=== PATIENT | female | born 1960 | race Caucasian/White ===

== ENCOUNTER 2020-04-18 09:11 | Outpatient (CLI) | payer BC, SELFPAY ==
--- NOTE | ~2020-04-18 | MM_ITS ---
EXAMINATION: MM screening [facility] w jamey HISTORY: Screening mammogram TECHNIQUE: Craniocaudal and mediolateral oblique 3-D tomosynthesis images were obtained and synthetic 2-D images were generated. CAD analysis was submitted and interpreted. COMPARISON: 04/13/2019, 01/18/2018 bilateral digital screening mammogram examinations BREAST PARENCHYMAL COMPOSITION: There are scattered areas of fibroglandular density. FINDINGS: There is no evidence of suspicious mass, calcification, or architectural distortion to sugg est malignancy in either breast. There has been no suspicious interval change. IMPRESSION: 1. No mammographic evidence of malignancy. 2. Recommend routine screening mammography in one year. BI-RADS Category 1: Negative Reviewed, dictated and finalized at location A.
== END 2020-04-18 09:12 | disposition home or self-care (01) ==
LOC: CHSIMG 09:12
PROVIDERS: PCP Internal Medicine; Visit Provider Internal Medicine
DX: Z12.31 Encounter for screening mammogram for malignant neoplasm of breast (principal)
CPT/HCPCS: 77063; 77067

== ENCOUNTER 2021-05-12 12:24 | Outpatient (CLI) | payer BC, SELFPAY | END 2021-05-12 12:25 | disposition home or self-care (01) | LOC: CHSIMG 12:27 | PROVIDERS: PCP Internal Medicine; Visit Provider Internal Medicine | DX: Z53.8 Procedure and treatment not carried out for other reasons (principal) | CPT/HCPCS: 99199 ==

== ENCOUNTER 2021-06-05 11:30 | Outpatient (CLI) | payer BC, SELFPAY ==
--- NOTE | ~2021-06-05 | MM_ITS ---
EXAMINATION: MM screening [facility] w jamey HISTORY: Screening mammogram TECHNIQUE: Craniocaudal and mediolateral oblique 3-D tomosynthesis images were obtained and synthetic 2-D images were generated. CAD analysis was submitted and interpreted. COMPARISON: 04/14/2020, 920 , 01/18/2018 bilateral screening mammogram examinations BREAST PARENCHYMAL COMPOSITION: The breasts are almost entirely fatty. FINDINGS: There is no evidence of suspicious mass, calcification, or architectural distortion to sugg est malignancy in either breast. There has been no suspicious interval change. IMPRESSION: 1. No mammographic evidence of malignancy. 2. Recommend routine screening mammography in one year. BI-RADS Category 1: Negative Reviewed, dictated and finalized at location A. 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
== END 2021-06-05 11:31 | disposition home or self-care (01) ==
LOC: CHSIMG 11:32
PROVIDERS: PCP Internal Medicine; Visit Provider Internal Medicine
DX: Z12.31 Encounter for screening mammogram for malignant neoplasm of breast (principal)
CPT/HCPCS: 77063; 77067

== ENCOUNTER 2022-06-08 12:43 | Outpatient (CLI) | payer BC, SELFPAY ==
--- NOTE | ~2022-06-08 | MM_ITS ---
EXAMINATION: MM screening [facility] w jamey HISTORY: Screening TECHNIQUE: Craniocaudal and mediolateral oblique 3-D tomosynthesis images were obtained and synthetic 2-D images were generated. CAD analysis was submitted and interpreted. COMPARISON: Comparison to multiple prior studies sequentially, with oldest reviewed study dated 06/25. BREAST PARENCHYMAL COMPOSITION: The breasts are almost entirely fatty. FINDINGS: There is no evidence of suspicious mass, calcification, or architectural distortion to sugg est malignancy in either breast. There has been no suspicious interval change. IMPRESSION: 1. No mammographic evidence of malignancy. 2. Recommend routine screening mammography in one year. BI-RADS Category 1: Negative Reviewed, dictated and finalized at location A. 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
== END 2022-06-08 12:44 | disposition home or self-care (01) ==
LOC: CHSIMG 12:44
PROVIDERS: PCP Internal Medicine; Visit Provider Internal Medicine
DX: Z12.31 Encounter for screening mammogram for malignant neoplasm of breast (principal)
CPT/HCPCS: 77063; 77067

== ENCOUNTER 2022-06-25 12:07 | Outpatient (CLI) | payer BC, SELFPAY ==
--- NOTE | ~2022-06-25 | DEXA_ITS ---
Bone Density Report Name: MAN ESPINAL Age: 62 Sex: Female Ethnicity: White Date of : 1960 Indication: postmenopausal; screening for osteoporosis; parental hip fracture; height loss; hysterectomy; Referring Provider: Isaac Moreira Study: Bone densitometry was performed. Exam Date: June 25, 2022 Accession number: [id number] Bone Density: Region BMD T-score Z-score Classification AP Spine(L1, L2, L3) 0.860 -1.4 0.0 Osteopenia Femoral Neck (Left) 0.680 -1.5 -0.2 Osteopenia Total Hip (Left) 0.790 -1.2 -0.3 Osteopenia Femoral Neck (Right) 0.686 -1.5 -0.2 Osteopenia Total Hip (Right) 0.797 -1.2 -0.2 Osteopenia Femoral Neck Mean 0.683 -1.5 -0.2 Osteopenia Total Hip Mean 0.794 -1.2 -0.3 Osteopenia World Health Organization criteria for BMD impression classify patients as: Normal (T-score at or above -1.0), Osteopenia (T-score between -1.0 and -2.5), or Osteoporosis (T-score at or below -2.5). 10-year Fracture Risk(1): Major Osteoporotic Fracture 15% Hip Fracture 0.7% Reported Risk Factors: [place] (), Neck BMD=0.680, BMI=30.5, parental fracture (1) FRAX(R) Version 3.08. Fracture probability calculated for an untreated patient. Fracture probability may be lower if the patient has received treatment. Clinical Information Provided by Patient: Parent has had a hip fracture Has used the following medications: Vitamin D, Calcium, multivitiman Has the following medical conditions: Hysterectomy Patient maximum height was 63 Menopause Age: 62 No regular weight bearing exercise Does not regularly consume dairy products Drinks caffeinated beverages Onset of menses at age 13 Number of children 4 Impression: The patient has low bone mass, based on the Left Femoral Neck T-score. The patient has risk factors, including: parental hip fracture. Discussion: BONE DENSITY IS LOW AT ONE OR MORE SKELETAL SITES. This patient's lowest T-score is low at one or more skeletal sites. It meets the World Health Organization's (WHO) criteria for ?low bone mass? (T-score between -1.0 and -2.5). The patient's 10-year risk of fracture as calculated by FRAX is less than the threshold where pharmacological therapy is recommended by the National Osteoporosis Foundation (NOF). However, all treatment decisions require clinical judgment and consideration of individual patient factors, including patient preferences, comorbidities, previous drug use, risk factors not captured in the FRAX model (e.g., frailty, falls, vitamin D deficiency, increased bone turnover, interval significant decline in bone density) and possible under or overestimation of fracture risk by FRAX. The patient should follow a healthful lifestyle (good nutrition with adequate calcium and vitamin D, and appropriate debby
== END 2022-06-25 12:08 | disposition home or self-care (01) ==
LOC: CHSIMG 12:08
PROVIDERS: PCP Internal Medicine; Visit Provider Internal Medicine
DX: M81.0 Age-related osteoporosis without current pathological fracture (principal)
CPT/HCPCS: 77080

== ENCOUNTER 2023-06-10 08:07 | Outpatient (CLI) | payer BC, SELFPAY ==
--- NOTE | ~2023-06-10 | MM_ITS ---
EXAMINATION: MM screening [facility] BI w jamey HISTORY: Screening mammogram TECHNIQUE: Craniocaudal and mediolateral oblique 3-D tomosynthesis images were obtained and synthetic 2-D images were generated. CAD analysis was submitted and interpreted. COMPARISON: 06/08/2022, 06/05/2021, 04/18/2020 BREAST PARENCHYMAL COMPOSITION: There are scattered areas of fibroglandular density. FINDINGS: No suspicious mass, calcification, or architectural distortion are identified in either linda ast to suggest malignancy. There has been no suspicious interval change. IMPRESSION: 1. No mammographic evidence of malignancy. 2. Recommend routine screening mammography in one year. BI-RADS Category 1: Negative Reviewed, dictated and finalized at location A. 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
== END 2023-06-10 08:08 | disposition home or self-care (01) ==
PROVIDERS: PCP Internal Medicine; Visit Provider Internal Medicine
DX: Z12.31 Encounter for screening mammogram for malignant neoplasm of breast (principal)
CPT/HCPCS: 77063; 77067

== ENCOUNTER 2024-03-31 16:07 | Outpatient (CLI) | payer BC, SELFPAY ==
[2024-03-31 16:47] LABS: Appearance Urine Clear (Clear); Color Urine Yellow (Yellow); Protein Urine Negative (Negative); Specific Grav Ur 1.005 (1.010-1.020); pH Urine 7.5 (5.0-8.0)
[2024-03-31 16:48] LABS: Add Urine Microscopic? NO; Bilirubin Urine Negative (Negative); Blood Urine Negative (Negative); Glucose Urine UA Negative (Negative); Ketones Urine Negative (Negative); Leukocyte Esterase Ur Negative (Negative); Nitrate Urine Negative (Negative); Urobilinogen Urine Negative mg/dL (0.2-1.0)
== END 2024-03-31 16:08 | disposition home or self-care (01) ==
LOC: CHSLAB 16:11
PROVIDERS: PCP Internal Medicine; Visit Provider Internal Medicine
DX: N39.0 Urinary tract infection, site not specified (principal)
CPT/HCPCS: 81003; 87086

== ENCOUNTER 2024-06-12 10:11 | Outpatient (CLI) | payer BC, SELFPAY ==
--- NOTE | ~2024-06-12 | MM_ITS ---
EXAMINATION: MM screening [facility] BI w jamey HISTORY: Screening mammogram TECHNIQUE: Craniocaudal and mediolateral oblique 3-D tomosynthesis images were obtained and synthetic 2-D images were generated. CAD analysis was submitted and interpreted. COMPARISON: 06/10/2023, 06/08/2022, 06/05/2021, 04/18/2020 BREAST PARENCHYMAL COMPOSITION:Not Dense. The breasts are almost entirely fatty FINDINGS: No suspicious mass, calcification, or architectural distortion are identified in either linda ast to suggest malignancy. There has been no suspicious interval change. IMPRESSION: No mammographic evidence of malignancy. Recommend routine screening mammography in one year. BI-RADS Category 1: Negative Reviewed, dictated and finalized at location . 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
== END 2024-06-12 10:12 | disposition home or self-care (01) ==
LOC: CHSIMG 10:13
PROVIDERS: PCP Internal Medicine; Visit Provider Internal Medicine
DX: Z12.31 Encounter for screening mammogram for malignant neoplasm of breast (principal)
CPT/HCPCS: 77063; 77067

== ENCOUNTER 2024-07-13 01:18 | Day surgery (SDC) | payer BC, SELFPAY ==
[2024-07-03 14:22] VITALS: BMI 29.3
[2024-07-13 08:34] VITALS: BP 133/73; PULSE 86; RESP 20; TEMP 36.5; O2SAT 99
[2024-07-13] MEDS: LACTATED RINGERS 1,000 ML 150 ML IV CONT (08:49)
--- NOTE | 2024-07-13 08:52 | WPDANESEPPF ---
Anes - Initial Pre Proc Eval Procedure: Operation Date: 07/13/24 10:00 Proposed Procedures p Screening Colonoscopy - Neil Vazquez DO Date/Time: 07/13/24 08:52 Surgeon: Neil Vazquez DO Pre Op Diagnosis: Screening for malignant neoplasm of colon Patient Data Age: 64 Gender: F Height: 1.52 m Weight: 68 kg Last Vital Signs Temp 36.5 C 07/13/24 08:34 Pulse 86 07/13/24 08:34 Resp 20 07/13/24 08:34 BP 133/73 07/13/24 08:34 Pulse Ox 99 07/13/24 08:34 O2 Del Method Room Air 07/13/24 08:34 Allergies Allergy/AdvReac Type Severity Reaction Status Date / Time Penicillins Allergy Unknown Hives Verified 07/13/24 08:32 AMOXICILLIN TRIHYDRATE Allergy Mild N/V Uncoded 07/13/24 08:32 POTASSIUM CLAVULANATE Allergy Mild N/V Uncoded 07/13/24 08:32 AMOXICILLIN/CLAVULANATE K Allergy Y Uncoded 07/13/24 08:32 (Generic Allergy) Home Medications ?Medication ?Instructions ?Recorded ?Confirmed ?Type aripiprazole 2 mg tablet 2 mg PO DAILY 07/03/24 07/13/24 History baclofen 10 mg tablet 10 mg PO PRN PRN Pain 07/03/24 07/13/24 History clonazepam 1 mg tablet 1 mg PO DAILY 07/03/24 07/13/24 History duloxetine 60 mg capsule,delayed 60 mg PO DAILY 07/03/24 07/13/24 History release polyethylene glycol 3350 17 gram 17 g PO DAILY 07/03/24 07/13/24 History oral powder packet (Miralax) Patient hx anesthesia problems: none Family hx anesthesia problems: none Results Review: All pre-operative results and documents have been reviewed as part of the pre-operative evaluation. [facility] Past Medical History Medical History (Updated 07/13/24 @ 08:55 by Lyndon Shell MD) Depression Fibromyalgia Surgical History Surgical History (Updated 07/13/24 @ 08:55 by Lyndon Shell MD) H/O colonoscopy H/O: hysterectomy Social History Social History Smoking status: Never smoker Alcohol intake: never Substance use: current Substance use type: marijuana Other substance usage details: edibles for fibromyalgia Living arrangements: with family Spiritual care concerns: No Anes - Eval Final PreProcedure Day of Procedure 07/13/24 08:52 Patient weight: overweight Heart: regular rate and rhythm Lungs: clear to auscultation Airway: Mallampati scale class II Neurological: alert and oriented Last oral intake: >/= 8 hours ASA classification: III Emergent: no Anesthetic plan: proceed Anesthesia type and monitoring: general GIVS and standard monitoring Results Review: All pre-operative results and documents have been reviewed as part of the pre-operative evaluation. Informed Consent: The patient's anesthetic plan and its attendant risks and benefits were discussed with the patient/family/POA. Questions were solicited and answers provided to the satisfaction of the patient/family/POA.
--- NOTE | 2024-07-13 09:05 | P.HP_ITS ---
H&P: HPI History of Present Illness Date/Time: 07/13/24 09:05 Chief Complaint: screening for colorectal cancer Narrative: this is a 64-year-old woman who presents for colonoscopy. Her last colonoscopy was about 5 years ago and she reports was normal. She also had a Cologuard test in the last couple years that was normal. She had a recent episode of constipation and has also noticed more narrow stools. She denies any prior history of diverticulitis, hematochezia, or melena. She denies family history of colon cancer. Review of Systems Review of Systems: All systems reviewed & are unremarkable except as noted in HPI and below Constitutional: Constitutional: Denies chills, Denies fever(s), Denies headache(s) and Denies weight loss Eyes: Eyes: Denies change in vision ENT: Denies dizziness, Denies headache(s), Denies neck mass and Denies throat swelling Cardiovascular: Cardiovascular: Denies chest pain, Denies lightheadedness and Denies dyspnea Respiratory: Respiratory: Denies cough, Denies dyspnea and Denies wheezing Gastrointestinal: Gastrointestinal: Denies abdominal pain, Denies change in bowel habits, Denies nausea and Denies vomiting Genitourinary: Genitourinary: Denies hematuria and Denies dysuria Musculoskeletal: Musculoskeletal: Reports as per HPI Integumentary/Breasts: Skin/Breast: Reports as per HPI Neurologic: Denies dizziness and Denies headache(s) Allergic/Immunologic: Allergic/Immunologic: Denies throat swelling and Denies wheezing [facility] Past Medical History Medical History (Updated 07/13/24 @ 09:07 by Neil Vaqzuez DO) Depression Fibromyalgia Surgical History Surgical History (Updated 07/13/24 @ 08:55 by Lyndon Shell MD) H/O colonoscopy H/O: hysterectomy Social History Social History Smoking status: Never smoker Alcohol intake: never Substance use: current Substance use type: marijuana Other substance usage details: edibles for fibromyalgia Living arrangements: with family Spiritual care concerns: No Meds Home Medications and Allergies Home Medications ?Medication ?Instructions ?Recorded ?Confirmed ?Type aripiprazole 2 mg tablet 2 mg PO DAILY 07/03/24 07/13/24 History baclofen 10 mg tablet 10 mg PO PRN PRN Pain 07/03/24 07/13/24 History clonazepam 1 mg tablet 1 mg PO DAILY 07/03/24 07/13/24 History duloxetine 60 mg capsule,delayed 60 mg PO DAILY 07/03/24 07/13/24 History release polyethylene glycol 3350 17 gram 17 g PO DAILY 07/03/24 07/13/24 History oral powder packet (Miralax) Allergies Allergy/AdvReac Type Severity Reaction Status Date / Time Penicillins Allergy Unknown Hives Verified 07/13/24 08:32 AMOXICILLIN TRIHYDRATE Allergy Mild N/V Uncoded 07/13/24 08:32 POTASSIUM CLAVULANATE Allergy Mild N/V Uncoded 07/13/24 08:32 AMOXICILLIN/CLAVULANATE K Allergy Y Uncoded 07/13/24 08:32 (Generic Allergy) Vital Signs Vital Signs - 24 hr 07/13/24 08:34 Temperature 97.7 F Pulse Rate 86 Respiratory Rate 20 Blood Pressure 133/73 Pulse Oximetry 99 Oxygen Delivery Room Air Exam Const: General: no acute distress and alert Orientation/consciousness: patient oriented x3 HENMT: Head: normocephalic and atraumatic Ears: hearing grossly normal bilaterally Face/Nose/Sinus: Normal nares present Mouth: Yes Normal oral and palatal mucosa present Eyes: Periorbital: periorbital findings normal Sclera: sclerae normal EOM: EOMs intact bilaterally Neck: Neck: normal visual inspection, no lymphadenopathy and trachea midline Chest: Chest palpation & inspection: normal inspection of the chest Resp: Effort & Inspection: normal respiratory effort Auscultation: clear to auscultation bilaterally Cardio: Jugular venous distension: no JVD Rate: regular rate Rhythm: regular rhythm Heart sounds: S1 normal heart sound present and S2 normal heart sound present Peripheral pulses: Peripheral pulses 2+ throughout GI: Inspection: normal to inspection GI Palp: Yes Soft to palpation, No Tenderness to palpation present (GI), No Guarding due to palpation present (GI) and No Rebound tenderness present Percussion: Yes normal to percussion A uscultation: normal bowel sounds : General: Yes no CVA tenderness Back/Spine/Pelvis: Back: no CVA tenderness Neuro: General: patient oriented x3, no focal motor deficits and CN's II-XI intact bilaterally Cognition (Neuro): normal cognition Speech: normal speech Motor exam (neuro): 5/5 motor strength present throughout Extrem: General: capillary refill normal and no clubbing, cyanosis or edema Assessment and Plan Assessment and plan (1) Change in bowel habits: Code(s): R19.4 - Change in bowel habit Status: Acute Assessment and Plan: I have recommended colonoscopy. I have discussed the procedure, risks, benefits, and alternatives. Questions were answered. Patient is agreeable to proceed.
[2024-07-13 09:32] VITALS: BP 135/68; PULSE 81; RESP 20; O2SAT 100
[2024-07-13 09:42] VITALS: BP 110/66; PULSE 69; RESP 19; O2SAT 100
[2024-07-13 09:52] VITALS: BP 125/69; PULSE 69; RESP 15; O2SAT 100
== END 2024-07-13 10:10 | disposition home or self-care (01) ==
PROVIDERS: PCP Internal Medicine; Visit Provider Surgery
PROC: 0DJD8ZZ Inspection of Lower Intestinal Tract, Via Natural or Artificial Opening Endoscopic (ICD-10-PCS; CPT 45378; principal; 2024-07-13 10:00)
DX: R19.4 Change in bowel habit (principal); K64.8 Other hemorrhoids; M79.7 Fibromyalgia; F32.A Depression, unspecified; F12.90 Cannabis use, unspecified, uncomplicated
CPT/HCPCS: 45378; J2704; J7120

== ENCOUNTER 2024-11-03 11:51 | Outpatient (CLI) | payer BC, SELFPAY ==
[2024-11-03 13:00] LABS: Hematocrit 35.8 % (35.0-49.0); Hemoglobin 11.2 g/dL (12.0-15.0); Mean Corpuscular HGB Conc 31.3 g/dL (32-36); Mean Corpuscular Hemoglobin 30.8 pg (27.0-31.0); Mean Corpuscular Volume 98.4 fL (78.0-102.0); Mean Platelet Volume 11.4 fl (9.2-11.8); Platelet Count Result 250 K/mm3 (150-420); Red Blood Count 3.64 M/mm3 (4.20-5.40); Red Cell Distribution Width 12.2 % (11.6-14.4); White Blood Count 15.2 K/mm3 (4.8-10.8)
[2024-11-03 13:13] LABS: D Dimer 0.41 mg/L (0.19-0.50)
[2024-11-03 13:22] LABS: Alanine Aminotransferase 25 U/L (14-59); Albumin Level 3.8 g/dL (3.4-5.0); Alkaline Phosphatase 76 U/L (46-116); Anion Gap 4 mmol/L (4-12); Aspartate Amino Transferase 18 U/L (15-37); Bilirubin,Total 0.3 mg/dL (0.00-1.00); Blood Urea Nitrogen 13 mg/dL (7-18); Calcium 9.3 mg/dL (8.5-10.1); Carbon Dioxide 32 mmol/L (21-32); Chloride 104 mmol/L (98-108); Estimated Glomerular Filt Rate > 60; Glucose 83 mg/dL (70-99); Osmolality Calculated 289 mOsm/kg (285-295); Potassium 4.4 mmol/L (3.5-5.1); Sodium 140 mmol/L (136-145); Total Protein 6.9 g/dL (6.4-8.2)
== END 2024-11-03 11:52 | disposition home or self-care (01) ==
LOC: CHSLAB 11:53
PROVIDERS: PCP Internal Medicine; Visit Provider Internal Medicine
DX: M79.89 Other specified soft tissue disorders (principal)
CPT/HCPCS: 36415; 80053; 85027; 85380

== ENCOUNTER 2024-11-20 10:00 | Outpatient (CLI) | payer BC, SELFPAY ==
[2024-11-20 10:20] LABS: Hematocrit 38.9 % (35.0-49.0); Hemoglobin 12.2 g/dL (12.0-15.0); Immature Reticulocyte Fraction 9.7 % (2.0-16.52); Mean Corpuscular HGB Conc 31.4 g/dL (32-36); Mean Corpuscular Volume 98.7 fL (78.0-102.0); Mean Platelet Volume 10.7 fl (9.2-11.8); Platelet Count Result 216 K/mm3 (150-420); Red Blood Count 3.94 M/mm3 (4.20-5.40); Red Cell Distribution Width 12.4 % (11.6-14.4); Reticulocyte Hemoglobin Conten 35.3 pg (28.0-35.0); Reticulocyte Percent 1.92 % (0.50-1.50); Reticulocytes Absolute 0.08 M/mm3 (0.02-0.10); White Blood Count 9.2 K/mm3 (4.8-10.8)
[2024-11-20 10:57] LABS: Ferritin 250 ng/mL (8-252); Iron 85 ug/dL (50-170); Percent Iron Saturation 28 % (12-57)
[2024-11-20 11:12] LABS: CRP < 0.5 mg/dL (0.0-0.9)
[2024-11-22 11:58] LABS: Red Blood Cell Folate 513 ng/mL RBC (>280)
[2024-11-23 12:44] LABS: Methylmalonic Acid 99 nmol/L (69-390)
== END 2024-11-20 10:01 | disposition home or self-care (01) ==
LOC: CHSLAB 10:04
PROVIDERS: PCP Internal Medicine; Visit Provider Internal Medicine
DX: D64.9 Anemia, unspecified (principal)
CPT/HCPCS: 36415; 82728; 82747; 83540; 83550; 83921; 85027; 85046; 86140

== ENCOUNTER 2025-05-07 11:57 | Outpatient (CLI) | payer BC, SELFPAY ==
--- NOTE | ~2025-05-07 | XR_ITS ---
EXAMINATION: XR wrist RT min 3V, 05/07/2025 12:15 CDT HISTORY: BL hand pain, family h/o RA COMPARISON: No comparisons available. Findings: No acute fracture or malalignment. Moderate degenerative changes first metacarpal carpal joint, no erosions identified Soft tissues unremarkable. Impression: No acute fracture or malalignment. Reviewed, dictated and finalized at location P. Impression: No acute fracture or malalignment.
--- NOTE | ~2025-05-07 | XR_ITS ---
EXAMINATION: XR hand RT min 3V, 05/07/2025 12:15 CDT HISTORY: BL hand pain, family h/o RA COMPARISON: No comparisons available. Findings: No acute fracture or malalignment. Moderate degenerative changes distal interphalangeal joints of the first metacarpal carpal joint, no erosions identified Soft tissues unremarkable. Impression: No acute fracture or malalignment. Reviewed, dictated and finalized at location P. Impression: No acute fracture or malalignment.
--- NOTE | ~2025-05-07 | XR_ITS ---
EXAMINATION: XR hand LT min 3V, 05/07/2025 12:15 CDT HISTORY: BL hand pain, family h/o RA COMPARISON: No comparisons available. Findings: No acute fracture or malalignment. Moderate degenerative changes most marked of the first metacarpal carpal joint, no erosions identified Soft tissues unremarkable. Impression: No acute fracture or malalignment. Reviewed, dictated and finalized at location P. Impression: No acute fracture or malalignment.
--- NOTE | ~2025-05-07 | XR_ITS ---
EXAMINATION: XR wrist LT min 3V, 05/07/2025 12:15 CDT HISTORY: BL hand pain, family h/o RA COMPARISON: No comparisons available. Findings: No acute fracture or malalignment. Moderate degenerative changes first metacarpal carpal joint, no erosions identified Soft tissues unremarkable. Impression: No acute fracture or malalignment. Reviewed, dictated and finalized at location P. Impression: No acute fracture or malalignment.
== END 2025-05-07 11:58 | disposition home or self-care (01) ==
LOC: CHSIMG 11:58
PROVIDERS: PCP Internal Medicine; Visit Provider Internal Medicine
DX: M79.642 Pain in left hand (principal); M79.641 Pain in right hand
CPT/HCPCS: 73110; 73130

== ENCOUNTER 2025-06-13 11:51 | Outpatient (CLI) | payer BC, SELFPAY ==
--- NOTE | ~2025-06-13 | DEXA_ITS ---
Bone Density Report Name: MAN ESPINAL Age: 65 Sex: Female Ethnicity: White Date of : 1960 Indication: postmenopausal; screening for osteoporosis; parental hip fracture; height loss; hysterectomy; Referring Provider: Isaac Moreira Study: Bone densitometry was performed. Exam Date: June 13, 2025 Accession number: [id number] Bone Density: Region BMD T-score Z-score Classification AP Spine(L1, L2, L3) 0.823 -1.8 -0.2 Osteopenia Femoral Neck (Left) 0.597 -2.3 -0.8 Osteopenia Total Hip (Left) 0.844 -0.8 0.3 Normal Femoral Neck (Right) 0.662 -1.7 -0.3 Osteopenia Total Hip (Right) 0.832 -0.9 0.2 Normal Femoral Neck Mean 0.629 -2.0 -0.5 Osteopenia Total Hip Mean 0.838 -0.9 0.3 Normal World Health Organization criteria for BMD impression classify patients as: Normal (T-score at or above -1.0), Osteopenia (T-score between -1.0 and -2.5), or Osteoporosis (T-score at or below -2.5). 10-year Fracture Risk(1): Major Osteoporotic Fracture 20% Hip Fracture 1.8% Reported Risk Factors: [place] (), Neck BMD=0.597, BMI=32.7, parental fracture (1) FRAX(R) Version 3.08. Fracture probability calculated for an untreated patient. Fracture probability may be lower if the patient has received treatment. Clinical Information Provided by Patient: Parent has had a hip fracture Has used the following medications: Vitamin D, Calcium Has the following medical conditions: Hysterectomy Patient maximum height was 63 Menopause Age: 62 No regular weight bearing exercise Does not regularly consume dairy products Drinks caffeinated beverages Onset of menses at age 13 Number of children 4 Impression: The patient has low bone mass, based on the Left Femoral Neck T-score. The patient has risk factors, including: parental hip fracture. Discussion: BONE DENSITY IS LOW AT ONE OR MORE SKELETAL SITES. This patient's lowest T-score is low at one or more skeletal sites. It meets the World Health Organization's (WHO) criteria for ?low bone mass? (T-score between -1.0 and -2.5). The patient's 10-year risk of fracture as calculated by FRAX is less than the threshold where pharmacological therapy is recommended by the National Osteoporosis Foundation (NOF). However, all treatment decisions require clinical judgment and consideration of individual patient factors, including patient preferences, comorbidities, previous drug use, risk factors not captured in the FRAX model (e.g., frailty, falls, vitamin D deficiency, increased bone turnover, interval significant decline in bone density) and possible under or overestimation of fracture risk by FRAX. The patient should follow a healthful lifestyle (good nutrition with adequate calcium and vitamin D, and appropriate weight-bearing exercise). Follow-Up: Consider repeating this study in 2 to 3 years to reassess this patient's status, or sooner if there is some new clinical indication. Reported by: PREET on 06/13/2025 12:10:00 PM. Reviewed, dictated and finalized at location A.
== END 2025-06-13 11:52 | disposition home or self-care (01) ==
PROVIDERS: PCP Internal Medicine; Visit Provider Internal Medicine
DX: Z78.0 Asymptomatic menopausal state (principal); M85.89 Other specified disorders of bone density and structure, multiple sites
CPT/HCPCS: 77080

== ENCOUNTER 2025-07-12 08:17 | Outpatient (CLI) | payer BC, SELFPAY ==
--- NOTE | ~2025-07-12 | MM_ITS ---
EXAMINATION: MM screening [facility] BI w jamey HISTORY: Screening TECHNIQUE: Craniocaudal and mediolateral oblique 3-D tomosynthesis images were obtained and synthetic 2-D images were generated. CAD analysis was submitted and interpreted. COMPARISON: Comparison to multiple prior studies sequentially, with oldest reviewed study dated 04/18/2020. BREAST PARENCHYMAL COMPOSITION: Not Dense: The breasts are almost entirely fatty. FINDINGS: There is no evidence of suspicious mass, calcification, or architectural distortion to suggest malignancy in either breast. Scattered benign-appearing calcifications are present. IMPRESSION: 1. No mammographic evidence of malignancy. 2. Recommend routine screening mammography in one year. BI-RADS Category 2: Benign finding(s). Reviewed, dictated and finalized at location A. 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
== END 2025-07-12 08:18 | disposition home or self-care (01) ==
LOC: CHSIMG 08:18
PROVIDERS: PCP Internal Medicine; Visit Provider Internal Medicine
DX: Z12.31 Encounter for screening mammogram for malignant neoplasm of breast (principal)
CPT/HCPCS: 77063; 77067